=== PATIENT | female | born 1990 | race Caucasian/White ===

== ENCOUNTER 2018-12-25 10:12 | Emergency (ER) | payer MEDICAID, SELFPAY ==
[2018-12-25 10:17] VITALS: BP 129/58; PULSE 64; RESP 16; TEMP 36.6; O2SAT 98
--- NOTE | 2018-12-25 10:38 | ED.GENADUL_ITS ---
Discharge Plan Disposition Patient Disposition: HOME Condition: Fair Discharge Details Chief Complaint: EarProblem Clinical Impression: Otitis media, Perforation of right tympanic membrane Primary Care Provider: Jouse Pop ED Provider: Meri Hull Home Meds and New Rx's Prescriptions: New amoxicillin-pot clavulanate [Augmentin] 875-125 mg tablet 1 tab PO BID Qty: 20 RF: 0 Discharge Instructions Instructions: Otitis Media (ED) Additional Instructions: Encourage hydration. Tylenol and/or ibuprofen as needed for discomfort. Please take Augmentin as prescribed. Even if symptoms improve, please take the entire course. Please keep upcoming appointment with her primary care. Fever/chills, increased pain, discharge or other new/worsening symptoms please seek care urgently once again. Referrals: Josue Pop [Primary Care Provider] - Discharge Data Discharge Date/Time-TO BE ENTERED AT DEPARTURE: 12/25/18 11:00 Medical Decision Making Patient is 28-year-old female presenting with chief complaint of right ear pain. She reports the ear pain began the past few days. Has had multiple ear infections her life with several tubes placed. This that her last ear infection was on the right side a few years ago. Denies any fevers or chills. Reports that this feels the same as it had previously. Has not noted any discharge. On exam, she is resting comfortably. 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 Has not noted any discharge. No mastoid tenderness on exam. She does have erythema and swelling of the tympanic membrane. Plan to place patient on Augmentin. Encourage hydration. She did make an appointment with primary care for next week for reevaluation. She is given strict return precautions. All her questions and concerns were addressed she is in agreement this plan. HPI General Mode of arrival: ambulatory . Date/Time Provider Initiated Documentation: 12/25/18 10:36 . Limitations to Documentation: no limitations . Information obtained by: patient and RN notes reviewed . History of Present Illness 28 year old F presents to the emergency department with the chief complaint of right ear pain, described as moderate and similar to prior episodes, with intensity rated at 6. Quality is described as aching, and is localized to the face (right ear). Patient reports no radiation. Patient started experiencing this day(s) and it has been constant. No relieving factors improve symptom(s), No exacerbating factors reported . Patient notes no other symptoms.; denies chest pain, cough, diaphoresis, fever/chills, headaches, loss of appetite, nausea/vomiting, rash and shortness of breath. Patient did receive the following treatments prior to arrival, none Related Data Home Medications Medication Instructions Recorded Confirmed amoxicillin-pot clavulanate 1 tab PO BID #20 tab 12/25/18 [Augmentin] Previous Rx's Medication Instructions Recorded amoxicillin-pot clavulanate 1 tab PO BID #20 tab 12/25/18 [Augmentin] Allergies Allergy/AdvReac Type Severity Reaction Status Date / Time aspirin Allergy Severe Anaphylaxsi Unverified 12/25/18 10:21 s tramadol [From Ultram] AdvReac Intermediate Other (See Unverified 12/25/18 10:21 Comment) trazodone AdvReac Intermediate Other (See Unverified 12/25/18 10:21 Comment) General Stated Complaint: EarProblem ADRIANNE: 4 Review of Systems Constitutional Constitutional: Reports as per HPI, Denies chills, Denies fever(s), Denies headache(s) and Denies poor appetite Eyes Eyes: Reports as per HPI, Denies eye discharge and Denies irritation ENT Ears, Nose, Mouth, and Throat: Reports as per HPI and Denies headache(s) Cardiovascular Cardiovascular: Reports as per HPI, Denies chest pain and Denies dyspnea Respiratory Respiratory: Reports as per HPI and Denies dyspnea Gastrointestinal Gastrointestinal: Reports as per HPI, Denies abdominal pain, Denies change in bowel habits, Denies nausea and Denies vomiting Integumentary/Breasts Skin/Breast: Reports as per HPI and Denies rash Neurologic Neurologic: Reports as per HPI and Denies headache(s) [facility] Social History Smoking/Tobacco Use Status: Never Alcohol Intake: never Current gender identity: female Do you feel safe at home: Yes Do you feel safe in your relationship?: Yes Exam Const General: cooperative, healthy appearing, comfortable, no acute distress, well developed and well groomed Nutritional Appearance: average body habitus and well nourished Orientation: alert and awake [facility] Head: normal to inspection, normocephalic and atraumatic Ears: hearing grossly normal bilaterally, external ears normal, mastoids normal bilaterally (nontender), no periauricular adenopathy, no periauricular adenopa thy and TM abnormal (left has scarring, right erythematous, bulging with chronic appearing small) General nose exam: external nose normal and nares normal Face and sinus: normal facial exam, sinuses nontender and face symmetric Mouth: oral mucosae normal, lip normal, tongue normal, oropharynx normal and moist mucous membranes Teeth and gingiva: dentition normal Throat: posterior oropharynx normal, tonsils normal and uvula midline Eyes General: appearance normal, both eyes and all related structures Neck Neck: normal visual inspection, full ROM, no lymphadenopathy and no meningeal signs Resp Effort & Inspection: normal respiratory effort, able to speak in complete sentences and no respiratory distress Auscultation: clear to auscultation bilaterally, no rales, no rhonchi and no wheezes Cardio Rate: regular rate Rhythm: regular rhythm Heart Sounds: S1 normal and S2 normal Skin General skin exam: no rashes or lesions noted Neuro General: alert and awake Cognition: normal cognition Speech: speech normal Gait: normal gait Psych Appearance: grossly normal and well kempt Mental Status: mental status grossly normal Speech and Movement: speech and movement normal Course Vital Signs Vital signs: Vital Signs Temperature 36.6 C 12/25/18 10:17 Pulse 64 12/25/18 10:17 Respiratory Rate 16 12/25/18 10:17 Blood Pressure 129/58 L 12/25/18 10:17 Pulse Oximetry 98 12/25/18 10:17 Temperature 36.6 C 12/25/18 10:17 Temperature Source Temporal Artery Scan 12/25/18 10:17 Pulse 64 12/25/18 10:17 Respiratory Rate 16 12/25/18 10:17 Respiratory Effort Non-Labored 12/25/18 10:19 Blood Pressure 129/58 L 12/25/18 10:17 Blood Pressure Position Sitting 12/25/18 10:17 Pulse Oximetry 98 12/25/18 10:17 Oxygen Delivery Method Room Air 12/25/18 10:17 Oxygen Flow Rate 0 12/25/18 10:17 Pain Level 6 12/25/18 10:21
== END 2018-12-25 11:00 | disposition home or self-care (01) ==
PROVIDERS: Emergency Provider Physician Assistant; PCP Family Medicine
DX: H66.91 Otitis media, unspecified, right ear (principal); H72.91 Unspecified perforation of tympanic membrane, right ear
CPT/HCPCS: 81025; 99283